=== PATIENT | male | born 1960 | race Caucasian/White ===

== ENCOUNTER 2017-06-22 05:04 | Inpatient (IN) | payer OTHER, MEDICAID ==
[~2017-06-22] VITALS: Ht 182.9 cm; Wt 83.5 kg
[2017-06-22 04:00] VITALS: BP 115/86
[~2017-06-22 05:04] MED LIST: ATEN25TA PO; DRON400T2 PO; MULT-70 PO; OMEP20CA4 PO
--- NOTE | 2017-06-22 05:15 | NUR ---
TO BED 3 AMBULATORY C/O "I FEEL LIKE MY HEART IS RACING AGAIN". PT REPORT TAKING ATENOLOL 25MG PO ACCESS DATABASE DEVELOPER. PT AAOX4 NO ACUTE DISTRESS NOTED, RESP EVEN AND UNLABORED. PLACE PT ON CARDAIC MONITORING, NOTED RAPID A-FIB WITH RVR. PLACE PT ON CONTINUOUS POX, O2@2L/NC. SKIN WARM NONDIAPHORETIC. ER MD AT BEDSIDE TO EVAL PT WITH ORDERS RECEIVED. WILL CARRY OUT ORDERS.
[2017-06-22] MEDS ORDERED: DILTIAZEM HCL 25 MG IV ONE ×3 (05:21→05:32)
--- NOTE | 2017-06-22 05:24 | NUR ---
20G LEFT HAND IV STARTED. BLOOD SAMPLE OBTAINED AND SENT TO LAB.
[2017-06-22 05:30] LABS: BASOPHILS # (AUTO) 0.1 /CMM (0.0-0.2); BASOPHILS % (AUTO) 1.3 % (0.0-2.0); EOSINOPHILS # (AUTO) 0.5 /CMM (0.0-0.7); EOSINOPHILS % (AUTO) 6.7 % (0.0-6.0); HEMATOCRIT 48 % (39-51); LYMPHOCYTES # (AUTO) 1.7 /CMM (0.8-4.8); LYMPHOCYTES % (AUTO) 25.7 % (20.0-44.0); MEAN CORPUSCULAR HEMOGLOBIN 35 PG (26.0-33.0); MEAN CORPUSCULAR HGB CONC 35 g/dl (31.0-36.0); MEAN CORPUSCULAR VOLUME 98 fL (80-96); MONOCYTES # (AUTO) 0.5 /CMM (0.1-1.30); MONOCYTES % (AUTO) 7.1 % (2.0-12.0); NEUTROPHILS % (AUTO) 59.2 % (43.0-81.0); PLATELET COUNT (AUTO) 175 /CMM (150-450); RDW COEFFICIENT OF VARIATION 13.6 (11.5-15.0); RED BLOOD CELL COUNT(AUTO) 4.93 MIL/uL (4.5-6.0); WHITE BLOOD COUNT (AUTO) 6.7 K/uL (4.3-11.0)
[2017-06-22] MEDS ORDERED: DILTIAZEM HCL IV 125 MG in IV D5W 100 ML IV PRN (05:30)
[2017-06-22] MEDS ORDERED: DILTIAZEM HCL 50 MG IV IV ONE (05:30)
[2017-06-22] MEDS ORDERED: DILTIAZEM HCL 50 MG IV ONE (05:31)
[2017-06-22 05:43] LABS: CALCIUM, SERUM 8.5 mg/dL (8.5-10.1); CARBON DIOXIDE 26 mmol/L (21-32); CHLORIDE 105 mmol/L (98-107); CREATININE 1.1 mg/dL (0.6-1.3); GLUCOSE 161 mg/dL (74-106); POTASSIUM 3.9 mmol/L (3.5-5.1); SODIUM SERUM 140 mmol/L (136-145); UREA NITROGEN, BLOOD 22 mg/dL (7-18)
[2017-06-22 05:50] LABS: PROTHROMBIN TIME 10.7 SECS (9.5-12.7)
[2017-06-22 05:53] LABS: TROPONIN I < 0.017 ng/mL (0.00-0.056)
--- NOTE | 2017-06-22 05:56 | NUR ---
ER TALKING TO BEKA DEY REGARDING PT ADMISSION. PENDING HOSPITAL ADMISSION.
[2017-06-22] MEDS ORDERED: Z GUARD REMEDY 2 OZ OINT TP PRN (06:00)
[2017-06-22] MEDS ORDERED: HYDROCODONE/APAP 5/325MG 1 EACH TABLET PO PRN (06:00)
[2017-06-22] MEDS ORDERED: MAGNESIUM HYDROXIDE 30 ML UDC PO PRN (06:00)
[2017-06-22] MEDS ORDERED: MAG HYDROX/AL HYDROX/SIMETH 30 ML UDC PO PRN (06:00)
[2017-06-22] MEDS ORDERED: ACETAMINOPHEN 325 MG TABLET PO PRN (06:00)
[2017-06-22] MEDS ORDERED: ONDANSETRON HCL/PF 4 MG/2 ML VIAL IVP PRN (06:00)
--- NOTE | 2017-06-22 06:07 | NUR ---
REPORT CALLED TO LATRELL S[facility]Y [facility]. WILL TRANSPORT PT VIA ACLS PROTOCOL.
--- NOTE | 2017-06-22 07:00 | NUR ---
pt a/o x3 able to verbalize needs. no c/ o pain,no s/s of distress. breathing even and unlabored.on cardizem drip 10 ml/hr.on tele monitoring for AFIB 118.I.V SITE cdi and patent.safety measures in place. bed in low and locked position.will continue to monitor for changes.
[2017-06-22 07:17] VITALS: BP 107/71
[2017-06-22 08:00] VITALS: BP 108/75
[2017-06-22] MEDS ORDERED: PANTOPRAZOLE 40 MG TABLET.DR PO SCH (08:30)
[2017-06-22 08:49] LABS: MAGNESIUM 1.9 mg/dL (1.8-2.4); PHOSPHORUS 3.1 mg/dL (2.5-4.9)
[2017-06-22 08:59] LABS: THYROID STIMULATING HORMONE 3.396 uIU/mL (0.358-3.74)
[2017-06-22] MEDS ORDERED: OMEPRAZOLE PO SCH (09:00)
[2017-06-22] MEDS ORDERED: AMIODARONE 900 MG in IV D5W 500 ML IV PRN (09:00)
[2017-06-22] MEDS ORDERED: ATENOLOL 25 MG TABLET PO SCH (09:00)
[2017-06-22] MEDS ORDERED: AMIODARONE 150 MG in IV D5W 100 ML IV ONE (09:00)
[2017-06-22] MEDS ORDERED: MULTIVITAMINS,THERAGRAN 1 UDTAB TABLET PO SCH (09:00)
[2017-06-22] MEDS ORDERED: DRONEDARONE HYDROCHLORIDE 400 MG TABLET PO SCH (09:00)
--- NOTE | 2017-06-22 09:00 | NUR ---
PT. seen by dr. bradshaw. received new order to d/c cardizem and start amiodarone.all orders noted and carried out.
[2017-06-22] MEDS ORDERED: AMIODARONE 900 MG in IV D5W 482 ML IV PRN (10:00)
[2017-06-22 12:00] VITALS: BP 112/70
== END 2017-06-22 18:56 | disposition left against medical advice (07) | DRG 309 ==
LOC: ER 05:05 → TELE-TD 06:21
PROVIDERS: ADMIT Nurse Practitioner Acute Care; ATTEND Nurse Practitioner Acute Care
DX: I48.91 Unspecified atrial fibrillation (principal); D68.59 Other primary thrombophilia; I10 Essential (primary) hypertension; K21.9 Gastro-esophageal reflux disease without esophagitis
CPT/HCPCS: 36415; 80048-TC; 83735-TC; 84100-TC; 84439-TC; 84443-TC; 84484-TC; 85025-TC; 85730-TC; 87081-TC; A4606; J0282; J3490; J7060; Z7610

== ENCOUNTER 2018-07-11 13:37 | Inpatient (IN) | payer MEDICAID, OTHER ==
[~2018-07-11] VITALS: Ht 182.9 cm; Wt 85.3 kg
[~2018-07-11 13:37] MED LIST changes: +MULT-594 PO; -MULT-70 PO
[2018-07-11 13:58] LABS: BASOPHILS # (AUTO) 0.1 /CMM (0.0-0.2); BASOPHILS % (AUTO) 1.8 % (0.0-2.0); EOSINOPHILS % (AUTO) 1.3 % (0.0-6.0); HEMATOCRIT 50 % (39-51); LYMPHOCYTES # (AUTO) 0.8 /CMM (0.8-4.8); LYMPHOCYTES % (AUTO) 10.8 % (20.0-44.0); MEAN CORPUSCULAR HEMOGLOBIN 33 PG (26.0-33.0); MEAN CORPUSCULAR HGB CONC 34 g/dl (31.0-36.0); MEAN CORPUSCULAR VOLUME 99 fL (80-96); MONOCYTES # (AUTO) 0.3 /CMM (0.1-1.30); MONOCYTES % (AUTO) 4.1 % (2.0-12.0); NEUTROPHILS # (AUTO) 6.2 /CMM (1.8-8.9); PLATELET COUNT (AUTO) 186 /CMM (150-450); RDW COEFFICIENT OF VARIATION 12.8 (11.5-15.0); RED BLOOD CELL COUNT(AUTO) 5.11 MIL/uL (4.5-6.0); WHITE BLOOD COUNT (AUTO) 7.5 K/uL (4.3-11.0)
--- NOTE | 2018-07-11 14:00 | NUR ---
PT CAME IN WITH C/O CHEST PALPITATION THAT STARTED AT AROUND 1230. PT STATES HX OF AFIB AND ALSO REPORTS THAT THIS SYMPTOMS HAPPENS TO HIM YEARLY. OTHER VSS. SEEN BY FOR EVAL. IV ACCESS STARTED, BLOOD DRAWN FOR LABS. SAFETY AND COMFORT MEASURES PROVIDED. WILL MONITOR.
[2018-07-11] MEDS ORDERED: DILTIAZEM HCL 25 MG IV ONE (14:06)
[2018-07-11 14:07] LABS: CALCIUM, SERUM 9.1 mg/dL (8.5-10.1); CARBON DIOXIDE 28 mmol/L (21-32); CHLORIDE 105 mmol/L (98-107); CREATININE 1.2 mg/dL (0.6-1.3); GLUCOSE 201 mg/dL (74-106); POTASSIUM 3.5 mmol/L (3.5-5.1); SODIUM SERUM 140 mmol/L (136-145); UREA NITROGEN, BLOOD 17 mg/dL (7-18)
[2018-07-11 14:10] LABS: INR 0.98 (0.85-1.15)
[2018-07-11 14:15] LABS: TROPONIN I < 0.017 ng/mL (0.00-0.056)
[2018-07-11 14:16] LABS: ALANINE AMINOTRANSFERASE 31 U/L (12-78); ALBUMIN 4.2 g/dL (3.4-5.0); ALKALINE PHOSPHATASE 65 U/L (46-116); ASPARTATE AMINOTRANSFERASE 22 U/L (15-37); BILIRUBIN,DIRECT 0.1 mg/dL (0.0-0.2); BILIRUBIN,TOTAL 0.6 mg/dL (0.2-1.0); TOTAL PROTEIN, SERUM 7.3 g/dL (6.4-8.2)
[2018-07-11] MEDS ORDERED: DILTIAZEM HCL 50 MG IV IV ONE (14:30)
--- NOTE | 2018-07-11 15:13 | NUR ---
CALLED [employer] BIOINFORMATICS COMPUTER SCIENTIST WAS PAGED.
--- NOTE | 2018-07-11 15:24 | NUR ---
REPORT GIVEN TO HERNAN CARDOZA FOR TELE ROOM 322.
--- NOTE | 2018-07-11 15:42 | NUR ---
CALLED PAPER TESTING SUPERVISOR, MANNEQUIN DECORATOR WAS PAGED.
--- NOTE | 2018-07-11 15:45 | NUR ---
DR WADSWORTH OUTBOUND SALES REPRESENTATIVE CALLED BACK , ON THE PHONE WITH DR SMITH.
--- NOTE | 2018-07-11 15:52 | NUR ---
UPDATED BED 113-2 LATRELL
[2018-07-11] MEDS ORDERED: Z GUARD REMEDY 2 OZ OINT TP PRN (16:00)
[2018-07-11] MEDS ORDERED: HYDROCODONE/APAP 5/325MG 1 EACH TABLET PO PRN (16:00)
[2018-07-11] MEDS ORDERED: ACETAMINOPHEN 325 MG TABLET PO PRN (16:00)
[2018-07-11] MEDS ORDERED: ONDANSETRON HCL/PF 4 MG/2 ML VIAL IVP PRN (16:00)
[2018-07-11] MEDS ORDERED: AMIODARONE 150 MG in IV D5W 100 ML IV ONE (16:00)
[2018-07-11] MEDS ORDERED: MAGNESIUM HYDROXIDE 30 ML UDC PO PRN (16:00)
[2018-07-11] MEDS ORDERED: AMIODARONE 900 MG in IV D5W 482 ML IV PRN (16:00)
[2018-07-11] MEDS ORDERED: MAG HYDROX/AL HYDROX/SIMETH 30 ML UDC PO PRN (16:00)
--- NOTE | 2018-07-11 16:01 | NUR ---
REPORT GIVEN TO OSCAR CARDOZA FOR 113-2.
--- NOTE | 2018-07-11 16:35 | NUR ---
AMIODARONE DRIP STARTED- IV DRIP TO RH 18G, ENDTIME- INFUSED WHILE BEING TRANSFERRED. ENDORSED TO OSCAR CARDOZA FOR RAYSA.
[2018-07-11 17:00] VITALS: BP 110/73
--- NOTE | 2018-07-11 17:04 | NUR ---
INITIAL LATRELL RN NOTE RCVD PT AWAKE AND ALERT, SHOWING NO S/O DISTRESS OR PAIN. UNCLTROLLED AFIB ON TELE, ON RA TOLERATING WELL. PT ABLE TO TRANSFER FROM RCORAL TO BED WITH STEADY GAIT. IV SITE RIGHT HAND #18 C/D/I/PATENT. AMIODARONE GTT INFUSING. WILL CONTINUE TO MONITOR PT FOR SAFETY AND COMFORT. BED IN LOW AND LOCKED POSITION. PT DENIES ANY CHEST PAIN. LUNGS CLEAR UPON AUSCULTATION.
--- NOTE | 2018-07-11 19:23 | NUR ---
LATRELL RN NOTE PT'S CARE ENDORSED TO CLARIFIER RN FOR CONTINUITY OF CARE. BED IN LOW AND LOCKED POSITION. CALL LIGHT WITHIN REACH.
[2018-07-11 20:00] VITALS: BP 121/80
--- NOTE | 2018-07-11 22:00 | NUR ---
PERINATAL INSTRUCTOR - REC'D PT. VERY TIRED, DROWSY, BUT COULD ANSWER QUESTIONS ASKED. HEART MONITOR SHOWS CONT./UNCONT. AFIB W/SBP'S:LOW 100'S TO 120'S. PT. DENIES CHEST PAIN. AFEBRILE. NO EDEMA NOTED. RT.HAND-18G IS PATENT TO FLUSH W/AMIODARONE GTT. INFUSING AT 1 MG/MIN. SITE IS CDI. O2 SATS ARE >96% TO 100% ON ROOM AIR. PT. IS USING URINAL. SKIN INTACT. ALL PULSES X 4 EXT. ARE PATENT TO FLUSH. CONT. POC.
[2018-07-12] VITALS: BP 106/74
[2018-07-12 04:00] VITALS: BP 111/75
--- NOTE | 2018-07-12 05:10 | NUR ---
RECEIVING SPECIALIST - PT. USED CALL CARLSON & I ANSWERED IMMEDIATELY. PT. STATED "I"VE CONVERTED"... AND I SAID, "HOW DO YOU KNOW" & HE SAID "I CAN FEEL MY PULSE". SO I EXCUSED MYSELF & RAN TO THE MONITORS & SURE ENOUGH, PT.CONVERTED & IT WAS VERIFIED BY LANGUAGE ARTS TEACHER - MARIE. PRINTED OUT VIA TELE MONITOR. AMIODARONE GTT. IS STILL AT 0.5MG/MIN. PT.STILL PLANS TO LEAVE EARLY TODAY. I ASKED HIM TO WAIT FOR THE FRONT END MANAGER & DIRECTLY ASK HIM IF YOU CAN LEAVE EARLY. PT. AGREED/VERBAL UNDERSTANDING.
[2018-07-12 06:30] LABS: BASOPHILS % (AUTO) 0.6 % (0.0-2.0); EOSINOPHILS % (AUTO) 3.5 % (0.0-6.0); HEMATOCRIT 52 % (39-51); HEMOGLOBIN 17.6 g/dL (13.5-17.5); LYMPHOCYTES # (AUTO) 1.2 /CMM (0.8-4.8); LYMPHOCYTES % (AUTO) 15.2 % (20.0-44.0); MEAN CORPUSCULAR HEMOGLOBIN 35 PG (26.0-33.0); MEAN CORPUSCULAR HGB CONC 34 g/dl (31.0-36.0); MEAN CORPUSCULAR VOLUME 102 fL (80-96); MONOCYTES # (AUTO) 0.3 /CMM (0.1-1.30); MONOCYTES % (AUTO) 3.9 % (2.0-12.0); NEUTROPHILS # (AUTO) 5.9 /CMM (1.8-8.9); NEUTROPHILS % (AUTO) 76.8 % (43.0-81.0); PLATELET COUNT (AUTO) 170 /CMM (150-450); RDW COEFFICIENT OF VARIATION 13.4 (11.5-15.0); RED BLOOD CELL COUNT(AUTO) 5.04 MIL/uL (4.5-6.0); WHITE BLOOD COUNT (AUTO) 7.7 K/uL (4.3-11.0)
--- NOTE | 2018-07-12 07:00 | NUR ---
RN NOTES RECEIVED PT ON BED, A/Ox4, ON RA , RESPIRATION EVEN AND UNLABORED, NO SOB NOTED, ON TELE , SR , HR IN 80'S , R HAND IV SITE G 18 CLEAN , DRY AND INTACT, WITH AMIO GTT AT .5MG/MIN RUNNING , SR UP x3, CALL LIGHT WITHIN EASY REACH, CONTINUE TO MONITOR .
[2018-07-12 07:08] LABS: CALCIUM, SERUM 8.4 mg/dL (8.5-10.1); PHOSPHORUS 2.5 mg/dL (2.5-4.9); POTASSIUM 4.1 mmol/L (3.5-5.1)
[2018-07-12 07:11] LABS: THYROID STIMULATING HORMONE 2.097 uIU/mL (0.358-3.74)
--- NOTE | 2018-07-12 07:15 | NUR ---
MOBILE SECURITY SPECIALIST- VERBAL REPORT ENDORSED TO TIFFANY CARDOZA. PT. REMAINS IN NSR/VIA TELE MONITOR. PT. WANTS BREAKFAST & IS EAGER TO GO HOME. NO OTHER CHANGES FROM PREVIOUS ASSESSMENTS. GOOD UOP. CONT. POC. DENIES PAIN. AMIODARONE GTT. INFUSING WELL.
[2018-07-12] MEDS ORDERED: PANTOPRAZOLE 40 MG TABLET.DR PO SCH (07:30)
[2018-07-12 08:00] VITALS: BP 132/85
[2018-07-12] MEDS ORDERED: MULTIVITAMINS,THERAGRAN 1 UDTAB TABLET PO SCH (09:00)
[2018-07-12] MEDS ORDERED: ONDA4TAB8 SL (10:32)
--- NOTE | 2018-07-12 10:49 | NUR ---
RN NOTES R HAND IV D/BRYSON , DISCHARGE INSTRUCTION GIVEN , PT VERBALIZES UNDERSTANDING , PT STATED WANTS TO DRIVE HIS OWN CAR HOME . REFUSED TO HAVE FAMILY TO PICK HIM UP . PT LEFT THE FLOOR AMBULATORY ACCOMPANIED BY STAFF MEMBERS TO MAIN ENTRANCE IN STABLE CONDITION .
== END 2018-07-12 11:00 | disposition home or self-care (01) | DRG 201 ==
LOC: ER 13:39 → TELE 14:44 → TELE1 15:53 → TELE-TD 16:47
PROVIDERS: ADMIT Nurse Practitioner Acute Care; ATTEND Nurse Practitioner Acute Care
DX: I48.91 Unspecified atrial fibrillation (principal); G43.909 Migraine, unspecified, not intractable, without status migrainosus; K21.9 Gastro-esophageal reflux disease without esophagitis; N40.0 Benign prostatic hyperplasia without lower urinary tract symptoms; Z88.0 Allergy status to penicillin; Z79.899 Other long term (current) drug therapy; Z98.890 Other specified postprocedural states; Z82.49 Family history of ischemic heart disease and other diseases of the circulatory system; R73.9 Hyperglycemia, unspecified
CPT/HCPCS: 36415; 71045-TC; 80048-TC; 80061-TC; 80076-TC; 83735-TC; 84100-TC; 84443-TC; 84484-TC; 85025-TC; 85730-TC; 87081-TC; A4606; J0282; J3490; J7060; Z7610

== ENCOUNTER 2019-06-09 07:03 | Inpatient (IN) | payer OTHER ==
[~2019-06-09] VITALS: Ht 182.9 cm; Wt 85.3 kg
[~2019-06-09 07:03] MED LIST changes: -ATEN25TA PO; -DRON400T2 PO; +ONDA4TAB8 SL
--- NOTE | 2019-06-09 07:12 | NUR ---
CAME IN FOR "AFIB" "MY HEART FEELS IRREGULAR". PT SNEEZED AT 6AM AND FELT HR CHANGE. TO ER BED 3, HOOKED TO MONITOR, CHANGED TO GOWN, PROVIDED W WARM BLANKET, PT AOX4 , NOT IN DISTRESS, AWAITING MD VALDEZ
--- NOTE | 2019-06-09 07:14 | NUR ---
DR SMITH AT BEDSIDE FOR EVAL.
[2019-06-09] MEDS ORDERED: DILTIAZEM HCL 25 MG IV IVP ONE ×2 (07:30→10:30)
--- NOTE | 2019-06-09 07:32 | NUR ---
PT REFUSED CXR, EXPLAINED ADVANTAGES AND DISADVANTAGES, PT STILL DECIDED TO REFUSE. MADE AWARE
[2019-06-09] MEDS ORDERED: DILTIAZEM HCL 50 MG IV ONE (07:35)
[2019-06-09 07:38] LABS: HEMOGLOBIN 17.1 g/dL (13.5-17.5)
[2019-06-09 07:43] LABS: BASOPHILS # (AUTO) 0.1 /CMM (0.0-0.2); BASOPHILS % (AUTO) 0.9 % (0.0-2.0); EOSINOPHILS % (AUTO) 4.7 % (0.0-6.0); HEMATOCRIT 49 % (39-51); LYMPHOCYTES # (AUTO) 1.2 /CMM (0.8-4.8); LYMPHOCYTES % (AUTO) 21.3 % (20.0-44.0); MEAN CORPUSCULAR HGB CONC 35 g/dl (31.0-36.0); MEAN CORPUSCULAR VOLUME 99 fL (80-96); MONOCYTES # (AUTO) 0.4 /CMM (0.1-1.30); MONOCYTES % (AUTO) 7.1 % (2.0-12.0); NEUTROPHILS # (AUTO) 3.7 /CMM (1.8-8.9); PLATELET COUNT (AUTO) 174 /CMM (150-450); RED BLOOD CELL COUNT(AUTO) 4.89 MIL/uL (4.5-6.0); WHITE BLOOD COUNT (AUTO) 5.7 K/uL (4.3-11.0)
[2019-06-09 07:46] LABS: CALCIUM, SERUM 8.6 mg/dL (8.5-10.1); CARBON DIOXIDE 25 mmol/L (21-32); CHLORIDE 107 mmol/L (98-107); CREATININE 1.1 mg/dL (0.6-1.3); GLUCOSE 110 mg/dL (74-106); POTASSIUM 3.8 mmol/L (3.5-5.1); SODIUM SERUM 142 mmol/L (136-145); UREA NITROGEN, BLOOD 17 mg/dL (7-18)
[2019-06-09 07:54] LABS: ALANINE AMINOTRANSFERASE 32 U/L (12-78); ALBUMIN 3.8 g/dL (3.4-5.0); ALKALINE PHOSPHATASE 63 U/L (46-116); ASPARTATE AMINOTRANSFERASE 19 U/L (15-37); BILIRUBIN,DIRECT 0.1 mg/dL (0.0-0.2); BILIRUBIN,TOTAL 0.5 mg/dL (0.2-1.0); TOTAL PROTEIN, SERUM 6.9 g/dL (6.4-8.2)
--- NOTE | 2019-06-09 09:16 | NUR ---
Note garry in EDM - 06/09/19 at 1102 by ISADORA CAME IN FOR "AFIB" "MY HEART FEELS IRREGULAR". PT SNEEZED AT 6AM AND FELT HR CHANGE. TO ER BED 3, HOOKED TO MONITOR, CHANGED TO GOWN, PROVIDED W WARM BLANKET, PT AOX4 , NOT IN DISTRESS, AWAITING MD VALDEZ
--- NOTE | 2019-06-09 09:18 | NUR ---
Note garry in EDM - 06/09/19 at 0925 by ISADORA PT STATES HE WANTS TO LEAVE AND PULLED OUT IVP LINE. Pressure and 4x4 applied to site. No bleeding noted.
--- NOTE | 2019-06-09 09:23 | NUR ---
David castañeda in [facility] - 06/09/19 at 0925 by ISADORA PT STATES HE WANTS TO STAY, SECURITY AT BEDSIDE, SEARCHED PATIENT AND BELONGINGS.
--- NOTE | 2019-06-09 10:42 | NUR ---
REPORT GIVEN TO MONICA CARDOZA OF ICU
[2019-06-09] MEDS ORDERED: AMIODARONE 150 MG in IV D5W 100 ML IV ONE (11:00)
[2019-06-09] MEDS ORDERED: AMIODARONE 900 MG in IV D5W 482 ML IV PRN (11:00)
[2019-06-09 11:08] VITALS: BP 128/67
[2019-06-09 11:30] VITALS: BP 140/94
[2019-06-09 12:00] VITALS: BP_SYST 128; BP_SYST 135; BP_DIAS 67; BP_DIAS 88
[2019-06-09 12:30] VITALS: BP 131/91
[2019-06-09] MEDS ORDERED: ACETAMINOPHEN 325 MG TABLET PO PRN (12:30)
[2019-06-09] MEDS ORDERED: Z GUARD REMEDY 2 OZ OINT TP PRN (12:30)
[2019-06-09] MEDS ORDERED: MAGNESIUM HYDROXIDE 30 ML UDC PO PRN (12:30)
[2019-06-09] MEDS ORDERED: ONDANSETRON HCL/PF 4 MG/2 ML VIAL IVP PRN (12:30)
[2019-06-09] MEDS ORDERED: ZOLPIDEM TARTRATE 5 MG TABLET PO PRN (12:30)
[2019-06-09] MEDS ORDERED: HYDROCODONE/APAP 5/325MG 1 EACH TABLET PO PRN (12:30)
[2019-06-09] MEDS ORDERED: MAG HYDROX/AL HYDROX/SIMETH 30 ML UDC PO PRN (12:30)
[2019-06-09 13:00] VITALS: BP 134/96
[2019-06-09] MEDS ORDERED: FLECAINIDE ACETATE (100 MG) 100 MG TABLET PO PRN (13:00)
[2019-06-09] MEDS: Magnesium 1GM/D5W 100ML PREMIX 100 ML IV SCH ×2 (13:09→14:15)
--- NOTE | 2019-06-09 13:47 | NUR ---
TREAD CUTTER ADMITTING NOTES: 1100 rec'd report from LYE BATH OPERATOR, pt will be admitted to [facility] for DX: Afib RVR. Pt transferred via gurney. Pt is A/O x4, not in any distress, denies any pain/discomfort. Placed on telemonitor, uncontrolled Afib. IV line access on LH G20 patent & intact w/ no s/sx of infection/infiltration noted. Skin issues photo taken & placed in the chart, wound consult ordered. Belongings at bedside. Safety precaution in place. Call light placed w/in reach. Will cont to monitor & attend pt needs. 1138 Dr. Clemons made aware that pt converted to NSR, if still wants to continue w/ Amiodarone drip. Per may DC. 1300 Pt seen & examined by Dr. Gillis. made aware that Amiodarone drip never started, per MD its okay. 1340 Pt seen & examined by Dr. Clemons w/ orders to march DC pt to home, self care. No home medications needed.
[2019-06-09 15:00] VITALS: BP 122/76
--- NOTE | 2019-06-09 16:25 | NUR ---
COMPUTER APPLICATIONS ENGINEERBRAILLE TRANSLATOR NOTES: Pt DC'd to home, self care as ordered. DC instructions & documents provided to the pt w/ verbalization of understanding. IV line access removed, pressure dressing applied w/ no sign of bleeding. Pt is ambulatory w/ steady gait. Belongings sent w/ pt, nothing missing. Pt left the unit in stable condition accompanied by surveillance system monitor. No concerns/issues identified during DC.
== END 2019-06-09 16:39 | disposition home or self-care (01) | DRG 201 ==
LOC: ER 07:03 → ICU 09:29
DX: I48.0 Paroxysmal atrial fibrillation (principal); K21.9 Gastro-esophageal reflux disease without esophagitis; N40.0 Benign prostatic hyperplasia without lower urinary tract symptoms
CPT/HCPCS: 36415; 80048-TC; 80076-TC; 84484-TC; 85025-TC; 87081-TC; 93307-TC; G0378; J0282; J3475; J3490; J7060

== ENCOUNTER 2020-01-08 04:44 | Inpatient (IN) | payer MEDICAID, OTHER ==
[~2020-01-08] VITALS: Ht 182.9 cm; Wt 83.9 kg
[~2020-01-08 04:44] MED LIST changes: -MULT-594 PO; -ONDA4TAB8 SL
--- NOTE | 2020-01-08 05:06 | NUR ---
PT CAME TO ER BED 1 C/O PALPITATIONS SINCE 0300 IN THE MORNING. PT STATES THAT HE DID A STRETCH AND FELT PALPITATIONS. PT STATES THAT HE WAS HERE 4 MONTHS AGO AND USUALLY HERE EVERY YEAR FOR THE SAME REASONS. DENIES CHEST PAINS. DOES NOT TAKE MEDS FOR A FIB. AAOX4. NO SOB. BREATHING EVENLY AND UNLABORED ON ROOM AIR. CONNECTED TO OPHTHALMIC TECHNICIAN.
[2020-01-08 05:07] LABS: BASOPHILS # (AUTO) 0.1 /CMM (0.0-0.2); BASOPHILS % (AUTO) 1.1 % (0.0-2.0); EOSINOPHILS % (AUTO) 5.3 % (0.0-6.0); HEMATOCRIT 52 % (39-51); LYMPHOCYTES # (AUTO) 1.8 /CMM (0.8-4.8); LYMPHOCYTES % (AUTO) 21.1 % (20.0-44.0); MEAN CORPUSCULAR HGB CONC 35 g/dl (31.0-36.0); MEAN CORPUSCULAR VOLUME 101 fL (80-96); MONOCYTES # (AUTO) 0.5 /CMM (0.1-1.30); MONOCYTES % (AUTO) 5.9 % (2.0-12.0); NEUTROPHILS # (AUTO) 5.7 /CMM (1.8-8.9); NEUTROPHILS % (AUTO) 66.6 % (43.0-81.0); PLATELET COUNT (AUTO) 203 /CMM (150-450); RED BLOOD CELL COUNT(AUTO) 5.13 MIL/uL (4.5-6.0); WHITE BLOOD COUNT (AUTO) 8.6 K/uL (4.3-11.0)
[2020-01-08] MEDS ORDERED: DILTIAZEM HCL 25 MG IV ONE (05:09)
[2020-01-08] MEDS ORDERED: DILTIAZEM HCL 50 MG IV ONE (05:12)
[2020-01-08 05:15] LABS: CALCIUM, SERUM 9.1 mg/dL (8.5-10.1); CARBON DIOXIDE 26 mmol/L (21-32); CHLORIDE 107 mmol/L (98-107); GLUCOSE 121 mg/dL (74-106); POTASSIUM 3.8 mmol/L (3.5-5.1); SODIUM SERUM 142 mmol/L (136-145); UREA NITROGEN, BLOOD 17 mg/dL (7-18)
[2020-01-08] MEDS ORDERED: DILTIAZEM HCL 50 MG IV IV ONE (05:30)
[2020-01-08] MEDS ORDERED: DILTIAZEM HCL IV 125 MG in IV NS 0.9% 100 ML IV PRN ×2 (05:30→06:00)
[2020-01-08] MEDS ORDERED: MAG HYDROX/AL HYDROX/SIMETH 30 ML UDC PO PRN (06:00)
[2020-01-08] MEDS ORDERED: MAGNESIUM HYDROXIDE 30 ML UDC PO PRN (06:00)
[2020-01-08] MEDS ORDERED: ONDANSETRON HCL/PF 4 MG/2 ML VIAL IVP PRN (06:00)
[2020-01-08] MEDS ORDERED: HYDROCODONE/APAP 5/325MG 1 EACH TABLET PO PRN (06:00)
[2020-01-08] MEDS ORDERED: MORPHINE SULFATE INJ 2 MG/ML DISP.SYRIN IV PRN (06:00)
[2020-01-08] MEDS ORDERED: ACETAMINOPHEN 325 MG TABLET PO PRN (06:00)
--- NOTE | 2020-01-08 06:23 | NUR ---
REPORT GIVEN TO KINSEY CARDOZA FOR RAYSA.
--- NOTE | 2020-01-08 06:37 | NUR ---
LATRELL/RN NOTES 59 YEARS OLD MALE PATIENT RECEIVED AT THIS TIME, WITH DX OF A-FIB WITH RVR. PATIENT ALERT AND ORIENTED X4, DENIES ANY CHEST PAIN. IN NO ACUTE DISTRESS. BREATHING EVEN AND UNLABORED. NO SOB NOTED. IV SITE WITH NO S/S OF INFECTION/ INFILTRATION, CARDIZEM RUNNING AT 15MG/HR. ON TELE MONITOR WITH A-FIB UNCONTROLLED RATE 123. ON ROOM AIT SATURATION 98%. SAFETY MAINTAINED, BED AT THE LOWEST LOCKED POSITION. CALL LIGHT WITHIN REACH. WILL CONTINUE TO MONITOR PER PLAN OF CARE.
--- NOTE | 2020-01-08 07:15 | NUR ---
RN INITIAL NOTE PATIENT IN BED, AWAKE AND ALERTX4. ON ROOM AIR, NO COMPLAINS OF ANY SOB OR PAIN AT THIS TIME. ON TELE MONITOR, UNCONTROLLED AFIB AT 120-140s. HAS A LEFT HAND #20 WITH CARDIZEM DRIP FROM ER. ADMITTING MD ORDERED CARDIZEM DRIP TO CONTINUE, WAITING FOR PHARMACY TO SEND. BED ON LOWEST POSITION. CALL LIGHT WITHIN REACH. WILL CONTINUE TO MONITOR CLOSELY
[2020-01-08 08:00] VITALS: BP 111/71
[2020-01-08] MEDS ORDERED: AMIODARONE 150 MG in IV D5W 100 ML IV ONE (09:30)
[2020-01-08] MEDS ORDERED: AMIODARONE 900 MG in IV D5W 482 ML IV PRN (09:30)
[2020-01-08] MEDS ORDERED: AMIODARONE 900 MG in IV D5W 500 ML IV PRN (09:30)
--- NOTE | 2020-01-08 09:39 | NUR ---
RN NOTE DR OLSON AT BEDSIDE, ORDERS TO CHANGE CARDIZEM DRIP TO AMIODARONE. PHARMACY MADE AWARE.
[2020-01-08 12:00] VITALS: BP 105/75
--- NOTE | 2020-01-08 13:00 | NUR ---
RN NOTE PATIENT CONVERTED TO SR AFTER [address] OLSON MADE AWARE, PER OK TO DC HOME.
--- NOTE | 2020-01-08 15:00 | NUR ---
RN NOTE PER DR PATTERSON OK TO T/O DC ORDER AND CALL IN PRESCRIPTION TO PATIENT'S PHARMACY. FLECAINIDE 100 MG PRN BID #30 CALLED [facility] AND TALKED TO PHARMACIST WERO ORDER CARRIED OUT
--- NOTE | 2020-01-08 16:05 | NUR ---
IMAGING TECHNICIAN NOTE PATIENT ALERT. EXIT CARE PACKET GIVEN. NO COMPLAINS OF ANY PAIN NOR SOB AT THIS TIME. EDUCATION GIVEN. NO PICTURES TAKEN, SKIN INTACT. SINUS RHYTHM ON THE MONITOR. PATIENT AWARE THAT HIS PRESCRIPTION HAS BEEN CALLED IN TO [facility]. PATIENT AMBULATORY AND WILL DRIVE HOME
== END 2020-01-08 16:00 | disposition home or self-care (01) | DRG 201 ==
LOC: ER 04:45 → TELE-TD 06:11
PROVIDERS: ADMIT Internal Medicine; ATTEND Internal Medicine
DX: I48.91 Unspecified atrial fibrillation (principal); D75.1 Secondary polycythemia; Z88.0 Allergy status to penicillin; N40.0 Benign prostatic hyperplasia without lower urinary tract symptoms; K21.9 Gastro-esophageal reflux disease without esophagitis
CPT/HCPCS: 36415; 80048-TC; 84484-TC; 85025-TC; G0378; J0282; J3490; J7030; J7060

== ENCOUNTER 2021-06-15 11:16 | Emergency (ER) | payer MEDICAID ==
[~2021-06-15] VITALS: Ht 177.8 cm; Wt 77.1 kg
--- NOTE | 2021-06-15 11:45 | NUR ---
PT ARRIVED WITH diffused abdominal pain, only at night x 1 week. ALERT AND ORIENTED X4. AMBULATORY, DENIES ANY SOB.
[2021-06-15 12:01] LABS: BASOPHILS % (AUTO) 0.8 % (0.0-2.0); EOSINOPHILS % (AUTO) 3.3 % (0.0-6.0); HEMATOCRIT 47 % (39-51); HEMOGLOBIN 16.1 g/dL (13.5-17.5); LYMPHOCYTES # (AUTO) 1.2 K/uL (0.8-4.8); LYMPHOCYTES % (AUTO) 21.5 % (20.0-44.0); MEAN CORPUSCULAR HGB CONC 34 g/dl (31.0-36.0); MEAN CORPUSCULAR VOLUME 101 fL (80-96); MONOCYTES # (AUTO) 0.3 K/uL (0.1-1.30); NEUTROPHILS # (AUTO) 3.8 K/uL (1.8-8.9); NEUTROPHILS % (AUTO) 68.4 % (43.0-81.0); PLATELET COUNT (AUTO) 191 K/uL (150-450); RED BLOOD CELL COUNT(AUTO) 4.65 MIL/uL (4.5-6.0); WHITE BLOOD COUNT (AUTO) 5.6 K/uL (4.3-11.0)
--- NOTE | 2021-06-15 12:05 | NUR ---
URINE COLLECTED AND SENT TO THE LAB
[2021-06-15 12:08] LABS: CALCIUM, SERUM 8.7 mg/dL (8.5-10.1); CREATININE 1.1 mg/dL (0.6-1.3); POTASSIUM 4.2 mmol/L (3.5-5.1)
[2021-06-15 12:12] LABS: BILIRUBIN,URINE Negative (NEGATIVE); COLOR,URINE YELLOW (YELLOW); LEUKOCYTE ESTERASE ,URINE Negative (NEGATIVE); NITRITE, URINE Negative (NEGATIVE); PROTEIN,URINE Negative (NEGATIVE); UGLUCOSE Negative (NEGATIVE); UROBILINOGEN,URINE 0.2 EU/dL (0.2)
[2021-06-15 12:13] LABS: BACTERIA,URINE Rare /HPF (None Seen); RBC,URINE 0-2 /HPF (0-2); SQUAMOUS EPITHELIAL CELL,UR Rare /HPF (None Seen); WBC,URINE 0-2 /HPF (0-3)
[2021-06-15 12:15] LABS: BILIRUBIN,DIRECT 0.2 mg/dL (0.0-0.2); BILIRUBIN,TOTAL 0.9 mg/dL (0.2-1.0); TOTAL PROTEIN, SERUM 7.4 g/dL (6.4-8.2)
--- NOTE | 2021-06-15 12:30 | NUR ---
PT TO RADIOLOGY FOR ABDOMINAL CT SCAN VIA [facility].
--- NOTE | 2021-06-15 12:45 | NUR ---
THE PATIENT IS BACK FROM CT
[2021-06-15] MEDS ORDERED: IBUP-1957 PO (13:18)
[2021-06-15 13:27] VITALS: BP 136/85
--- NOTE | 2021-06-15 13:27 | NUR ---
Patient discharged to home in stable condition. Written and verbal after care instructions given. Patient verbalizes understanding of instruction.
== END 2021-06-15 13:28 | disposition home or self-care (01) ==
LOC: ER 11:21
DX: R10.84 Generalized abdominal pain (principal); B02.9 Zoster without complications; B02.29 Other postherpetic nervous system involvement; I48.91 Unspecified atrial fibrillation; Z98.890 Other specified postprocedural states; Z88.0 Allergy status to penicillin; Z60.2 Problems related to living alone
CPT/HCPCS: 36415; 80048-TC; 80076-TC; 81001; 85025-TC

== ENCOUNTER 2021-07-18 10:13 | Emergency (ER) | payer MEDICAID ==
[~2021-07-18] VITALS: Ht 182.9 cm; Wt 81.6 kg
[~2021-07-18 10:13] MED LIST changes: +IBUP-1957 PO; -OMEP20CA4 PO
--- NOTE | 2021-07-18 10:13 | NUR ---
PT BIB SELF C/O PALPITATIONS STARTED AROUND 8AM. PT IS AAOX4, NOT IN RESPIRATORY DISTRESS, HOOKED TO PAPER SUPERVISOR, KEPT RESTED AND COMFORTABLE. WILL CONTINUE TO MONITOR.
--- NOTE | 2021-07-18 10:45 | NUR ---
Patient discharged to home in stable condition. Written and verbal after care instructions given. Patient verbalizes understanding of instruction.
[2021-07-18 10:46] VITALS: BP 135/82
== END 2021-07-18 10:46 | disposition home or self-care (01) ==
LOC: ER 10:13
DX: I48.91 Unspecified atrial fibrillation (principal); Z98.890 Other specified postprocedural states; Z88.0 Allergy status to penicillin; Z60.2 Problems related to living alone

== ENCOUNTER 2021-08-01 12:48 | Emergency (ER) | payer MEDICAID, OTHER ==
[~2021-08-01] VITALS: Ht 182.9 cm; Wt 70.3 kg
[2021-08-01 13:00] VITALS: BP 146/97
--- NOTE | 2021-08-01 13:06 | NUR ---
The patient bibs for c/o right big toe pain s/p hit it on a uneven side walk. Rates pain 10/10. Denies any numbness/tingling in the extremity. Will continue to monitor the patient.
--- NOTE | 2021-08-01 14:50 | NUR ---
Patient discharged to home in stable condition. Written and verbal after care instructions given. Patient verbalizes understanding of instruction. Pt ambulatory with a steady gait
== END 2021-08-01 14:51 | disposition home or self-care (01) ==
LOC: ER 12:51
DX: S90.111A Contusion of right great toe without damage to nail, initial encounter (principal); I48.91 Unspecified atrial fibrillation; Z98.890 Other specified postprocedural states; Z88.0 Allergy status to penicillin; Z60.2 Problems related to living alone; W22.8XXA Striking against or struck by other objects, initial encounter; Y93.89 Activity, other specified; Y92.89 Other specified places as the place of occurrence of the external cause; Y99.8 Other external cause status
CPT/HCPCS: 73630-TC

== ENCOUNTER 2022-04-20 08:04 | Inpatient (IN) | payer OTHER ==
[~2022-04-20] VITALS: Ht 182.9 cm; Wt 83.9 kg
[2022-04-20 08:46] LABS: BASOPHILS # (AUTO) 0.1 K/uL (0.0-0.2); BASOPHILS % (AUTO) 1.1 % (0.0-2.0); EOSINOPHILS % (AUTO) 3.7 % (0.0-6.0); HEMATOCRIT 51 % (39-51); HEMOGLOBIN 17.6 g/dL (13.5-17.5); LYMPHOCYTES # (AUTO) 1.4 K/uL (0.8-4.8); LYMPHOCYTES % (AUTO) 18.6 % (20.0-44.0); MEAN CORPUSCULAR HGB CONC 34 g/dl (31.0-36.0); MEAN CORPUSCULAR VOLUME 99 fL (80-96); MONOCYTES # (AUTO) 0.5 K/uL (0.1-1.30); MONOCYTES % (AUTO) 7.1 % (2.0-12.0); NEUTROPHILS # (AUTO) 5.2 K/uL (1.8-8.9); NEUTROPHILS % (AUTO) 69.5 % (43.0-81.0); PLATELET COUNT (AUTO) 225 K/uL (150-450); RED BLOOD CELL COUNT(AUTO) 5.18 MIL/uL (4.5-6.0); WHITE BLOOD COUNT (AUTO) 7.5 K/uL (4.3-11.0)
[2022-04-20] MEDS ORDERED: AMIODARONE 450 MG in IV D5W 250 ML IV ONE (09:00)
[2022-04-20] MEDS ORDERED: AMIODARONE 150 MG in IV D5W 100 ML IV ONE (09:00)
--- NOTE | 2022-04-20 09:07 | NUR ---
David castañeda in [facility] - 04/20/22 at 0926 by [email or web address] COVID SWAB COLLECTED AND SENT TO LAB.
--- NOTE | 2022-04-20 09:21 | NUR ---
COVID SWAB DONE AND SENT TO LAB
--- NOTE | 2022-04-20 09:54 | NUR ---
CHARTED FOR MEDICINE ADMINISTRATION FOR PSYCH SPECIALIST LORENZA, NO ACCESS TO CHART MEDS
--- NOTE | 2022-04-20 10:00 | NUR ---
PT BIBS PRESENTS TO ED WITH HEART PALPATIONS, AFIB NOTED ON MONITOR. PT TOOK AMIODARONE 200MG X2 AND ATENOLOL 25MG EXTRACTOR PLANT OPERATOR. PT DENIES CHEST PAIN, SOB, N/V, FEVER, OR CHILLS. PT SPEAKS IN F/C SENTENCES, CONSOLABLE, AND ABLE TO VOICE CONCERNS. PT IS A&OX4, NAD, VS CHARTED, RESPIRATION EVEN AND UNLABORED. NO PMH.
--- NOTE | 2022-04-20 10:01 | NUR ---
ULTRASOUND TA BEDSIDE FOR ECHO
[2022-04-20 10:02] LABS: CALCIUM, SERUM 9.6 mg/dL (8.5-10.1); CARBON DIOXIDE 28 mmol/L (21-32); CHLORIDE 104 mmol/L (98-107); CREATININE 1.3 mg/dL (0.6-1.3); GLUCOSE 107 mg/dL (74-106); POTASSIUM 4.1 mmol/L (3.5-5.1); SODIUM SERUM 140 mmol/L (136-145); UREA NITROGEN, BLOOD 21 mg/dL (7-18)
[2022-04-20] MEDS ORDERED: ZOLPIDEM TARTRATE 5 MG TABLET PO PRN (11:30)
[2022-04-20] MEDS ORDERED: MAG HYDROX/AL HYDROX/SIMETH 30 ML UDC PO PRN (11:30)
[2022-04-20] MEDS ORDERED: ACETAMINOPHEN 325 MG TABLET PO PRN (11:30)
[2022-04-20] MEDS ORDERED: ONDANSETRON HCL/PF 4 MG/2 ML VIAL IVP PRN (11:30)
[2022-04-20] MEDS ORDERED: MAGNESIUM HYDROXIDE 30 ML UDC PO PRN (11:30)
[2022-04-20] MEDS ORDERED: Z GUARD REMEDY 4 OZ OINT TP PRN (11:30)
--- NOTE | 2022-04-20 20:07 | NUR ---
119-1 PER RN CLINICAL ACCOUNT SPECIALIST
--- NOTE | 2022-04-20 21:25 | NUR ---
RN NOTES RECEIVED PT FROM ER VIA GURNEY ACCOMPANIED BY 2 ER STAFF AND TRANSFERRED TO BED INDEPENDENTLY. PT IS A/OX4ON ROOM AIR WITH RESPIRATIONS EVEN AND UNLABORED. COMPREHENSIVE PHYSICAL ASSESSMENT AND PATIENT CARE DONE. CALL LIGHT WITHIN REACH, SAFETY MEASURES AND ISOLATION PRECAUTION IN PLACE, WILL CONTINUE MONITOR AND ASSESS THROUGHOUT THE SHIFT. WILL CARRY OUT MD ORDERS ACCORDINGLY. NOTEREADER MADE AWARE.
[2022-04-20 21:30] VITALS: BP 120/80
--- NOTE | 2022-04-20 21:30 | NUR ---
RN NOTES RECEIVED ER ADMISSION REPORT FROM SONY PERSON. ALL PERTINENT ADMISSION INFO REGARDING PT NOTED. GARAGE DOOR HANGER MADE AWARE.
--- NOTE | 2022-04-20 21:34 | NUR ---
REPORT GIVEN TO SONY REGALADO
--- NOTE | 2022-04-20 21:54 | NUR ---
PATIENT TRANSFERRED TO [facility] VIA ACLS
--- NOTE | 2022-04-20 22:30 | NUR ---
RN NOTES NOTIFIED AJIT CUNNINGHAM, PROVIDED STATUS UPDATE ABOUT ADMISSION. PT AFIB BUT HR PLAYING 90s-110s, USED TO BE ON AMIO DRIP IN ER AND NOW DC'd. ASKED FOR ANY ORDERS OTHERWISE WILL CONTINUE TO MONITOR. AWAITING FOR AJIT Dobson RESPONSE. MEREDITH CARDOZA MADE AWARE. Addendum: 04/20/22 at 0571 by LUH RIVAS RN NO NEW ORDERS PER AJIT CUNNINGHAM, JUST MONITOR FOR THIS SHIFT FOR HR AND RHYTHM.MEREDITH CARDOZA MADE AWARE. WILL CONTINUE TO MONITOR AND ASSESS THROUGHOUT THE SHIFT.
[2022-04-21] VITALS: BP 106/77
[2022-04-21 04:00] VITALS: BP 113/81
--- NOTE | 2022-04-21 04:00 | NUR ---
RN NOTES PATIENT REMAINED TO BE IN NO SIGNS OF ACUTE RESPIRATORY DISTRESS , STILL ON AFIB WITH HR CONSISTENTLY RUNS AROUND HIGH 90s-110. NO NEW ORDERS AT THIS TIME. SAFE ENVIRONMENT MAINTAINED FOR PT. WILL CONTINUE TO MONITOR AND REASSESS FOR ANY CHANGES THROUGHOUT THE SHIFT.
--- NOTE | 2022-04-21 06:25 | NUR ---
RN NOTES PT CONVERTED FROM AFIB TO SINUS RHYTHM. HR AT THIS TIME IS 70s. AJIT CUNNINGHAM (JAZMIN,DIANETICIST) NOTIFIED.
--- NOTE | 2022-04-21 06:35 | NUR ---
RN CLOSING NOTE: PATIENT REMAINS IN ROOM IN NO SIGNS OF RESPIRATORY DISTRESS, PATIENT STILL ON ROOM AIR TOLERATING WELL SATURATING @ >95% SP02. NSR ON MONITOR HR IS AT 70S. ON SAFETY MEASURES IMPLEMENTED, BED IN LOWEST POSITION, LOCKED, SIDE RAILS UP, CALL LIGHT WITHIN REACH. ALL NEEDS AND ORDERS ADDRESSED DURING THE SHIFT. IV ACCESS MAINTAINED INTACT, SECURED AND FLUSHING WELL. WITH IVF RUNNING ORDERED. ALL DUE MEDS GIVEN ORDERED & SCHEDULED ; PATIENT TOLERATED WELL. PATIENT KEPT CLEAN AND COMFORTABLE WITHIN THE SHIFT. PATIENT ENDORSED TO INCOMING SHIFT RN WITH STABLE VITAL SIGN AND FOR CONTINUITY OF CARE.
[2022-04-21 07:11] LABS: BASOPHILS # (AUTO) 0.1 K/uL (0.0-0.2); BASOPHILS % (AUTO) 0.7 % (0.0-2.0); EOSINOPHILS % (AUTO) 5.7 % (0.0-6.0); HEMATOCRIT 50 % (39-51); HEMOGLOBIN 17.3 g/dL (13.5-17.5); LYMPHOCYTES # (AUTO) 1.2 K/uL (0.8-4.8); LYMPHOCYTES % (AUTO) 16.1 % (20.0-44.0); MEAN CORPUSCULAR HGB CONC 34 g/dl (31.0-36.0); MEAN CORPUSCULAR VOLUME 99 fL (80-96); MONOCYTES # (AUTO) 0.5 K/uL (0.1-1.30); MONOCYTES % (AUTO) 6.3 % (2.0-12.0); NEUTROPHILS # (AUTO) 5.5 K/uL (1.8-8.9); NEUTROPHILS % (AUTO) 71.2 % (43.0-81.0); PLATELET COUNT (AUTO) 197 K/uL (150-450); RED BLOOD CELL COUNT(AUTO) 5.08 MIL/uL (4.5-6.0); WHITE BLOOD COUNT (AUTO) 7.7 K/uL (4.3-11.0)
[2022-04-21 07:28] LABS: CALCIUM, SERUM 9.2 mg/dL (8.5-10.1); CREATININE 1.1 mg/dL (0.6-1.3); PHOSPHORUS 2.9 mg/dL (2.5-4.9); POTASSIUM 4.4 mmol/L (3.5-5.1)
[2022-04-21 08:00] VITALS: BP 110/71
[2022-04-21] MEDS ORDERED: FLEC100T2 PO (08:19)
--- NOTE | 2022-04-21 09:30 | NUR ---
PATIENT D/C TO HOME, GIVEN DISCHARGE INSTRUCTION INCLUDE NEW MEDICINE. IN NO DISTRESS OBSERVED, STABLE CONDITION. REMOVED IV LINE AND TARIFF INSPECTOR BEFORE PATIENT LEAVE.
== END 2022-04-21 09:58 | disposition home or self-care (01) | DRG 310 ==
LOC: ER 08:27 → TELE-TD 20:51 → TELE1 22:07
PROVIDERS: ADMIT Family Medicine; ATTEND Family Medicine
DX: I48.91 Unspecified atrial fibrillation (principal); Z88.0 Allergy status to penicillin; R73.9 Hyperglycemia, unspecified; N40.0 Benign prostatic hyperplasia without lower urinary tract symptoms; K21.9 Gastro-esophageal reflux disease without esophagitis; Z20.822 Contact with and (suspected) exposure to COVID-19
CPT/HCPCS: 36415; 80048-TC; 83735-TC; 84100-TC; 84484-TC; 85025-TC; 85730-TC; 93307-TC; C9803; G0378; J0282; J7060

== ENCOUNTER 2023-05-05 06:17 | Emergency (ER) | payer OTHER ==
[~2023-05-05] VITALS: Ht 182.9 cm; Wt 81.6 kg
[~2023-05-05 06:17] MED LIST changes: +FLEC100T2 PO; -IBUP-1957 PO
--- NOTE | 2023-05-05 06:50 | NUR ---
CAME CC OF PALPITATION AT 430AM, TOOK AMIODARONE 200MG AND IBUPROFEN 200 TESTING COORDINATOR. HX OF AFIB. PATIENT IS AOX4. ABLE TO MAKE NEEDS KNOWN. PLACED COMFORTABLY IN BED. VITALS CHECKED. ATTACHED TO MONITOR
--- NOTE | 2023-05-05 06:53 | NUR ---
EKG DONE AT BEDSIDE
--- NOTE | 2023-05-05 06:53 | NUR ---
SEEN BY DR KAMARA AT BEDSIDE
[2023-05-05] MEDS ORDERED: DILTIAZEM HCL 50 MG IV IV ONE ×2 (07:00→08:00)
[2023-05-05] MEDS ORDERED: IV NS 0.9% 1,000 ML BAG IV ONE (07:00)
[2023-05-05] MEDS ORDERED: DILTIAZEM HCL 25 MG IV ONE ×2 (07:07→07:49)
[2023-05-05 07:25] LABS: BASOPHILS % (AUTO) 0.7 % (0.0-2.0); EOSINOPHILS % (AUTO) 5.1 % (0.0-6.0); HEMATOCRIT 50 % (39-51); HEMOGLOBIN 16.8 g/dL (13.5-17.5); LYMPHOCYTES # (AUTO) 1.1 K/uL (0.8-4.8); LYMPHOCYTES % (AUTO) 16.8 % (20.0-44.0); MEAN CORPUSCULAR HGB CONC 34 g/dl (31.0-36.0); MEAN CORPUSCULAR VOLUME 98 fL (80-96); MONOCYTES # (AUTO) 0.5 K/uL (0.1-1.30); NEUTROPHILS # (AUTO) 4.7 K/uL (1.8-8.9); NEUTROPHILS % (AUTO) 70.4 % (43.0-81.0); PLATELET COUNT (AUTO) 181 K/uL (150-450); RED BLOOD CELL COUNT(AUTO) 5.08 MIL/uL (4.5-6.0); WHITE BLOOD COUNT (AUTO) 6.7 K/uL (4.3-11.0)
[2023-05-05 07:34] LABS: CALCIUM, SERUM 9.3 mg/dL (8.5-10.1); CARBON DIOXIDE 26 mmol/L (21-32); CHLORIDE 106 mmol/L (98-107); CREATININE 1.1 mg/dL (0.6-1.3); GLUCOSE 126 mg/dL (74-106); POTASSIUM 3.8 mmol/L (3.5-5.1); SODIUM SERUM 138 mmol/L (136-145); UREA NITROGEN, BLOOD 20 mg/dL (7-18)
[2023-05-05 07:39] LABS: ALANINE AMINOTRANSFERASE 36 U/L (12-78); ALKALINE PHOSPHATASE 67 U/L (46-116); ASPARTATE AMINOTRANSFERASE 21 U/L (15-37); BILIRUBIN,DIRECT 0.2 mg/dL (0.0-0.2); BILIRUBIN,TOTAL 0.8 mg/dL (0.2-1.0); TOTAL PROTEIN, SERUM 7.8 g/dL (6.4-8.2)
--- NOTE | 2023-05-05 08:52 | NUR ---
CALLED [facility] [phone] DR. CHANEL.
--- NOTE | 2023-05-05 09:00 | NUR ---
DR. CHANEL SPEAKING WITH DR. KAMARA.
[2023-05-05] MEDS ORDERED: AMIODARONE 450 MG in IV D5W 241 ML IV PRN (09:30)
[2023-05-05] MEDS ORDERED: AMIODARONE 150 MG in IV D5W 100 ML IV ONE (09:30)
[2023-05-05 09:46] VITALS: BP 154/103
--- NOTE | 2023-05-05 09:47 | NUR ---
amiodarone drip started at 33.3ml/hr as per protocol. will continue to titrate to effect
--- NOTE | 2023-05-05 10:00 | NUR ---
AMIODARONE 150 MG IV D5W 100 ML START TIME 936 STOP TIME 0981
--- NOTE | 2023-05-05 10:55 | NUR ---
CALLED [facility], PT ACCEPTED TO [facility]. AWAITING BED ASSIGNMENT.
--- NOTE | 2023-05-05 11:05 | NUR ---
PT ACCEPTED TO [facility] ER TO ER, UNDER DR. NICOLE PLEASE CALL [phone] FOR REPORT. [facility] TRANSPORT WITH [facility] ETA 1200.
--- NOTE | 2023-05-05 11:47 | NUR ---
report given to sybil ann for contiuation of care
--- NOTE | 2023-05-05 12:03 | NUR ---
patient transported by ambulance
== END 2023-05-05 12:04 | disposition short-term general hospital (02) ==
LOC: ER 06:23
DX: I48.20 Chronic atrial fibrillation, unspecified (principal); Z79.899 Other long term (current) drug therapy; Z60.2 Problems related to living alone; Z88.0 Allergy status to penicillin
CPT/HCPCS: 99291; 96374; 96361; 96375; 93005; 96376; 85025; 80048; 80076; 36415; 84484; J3490 ×2; J7060; J7030; J0282 ×2; A4223